=== PATIENT | female | born 1955 | race Caucasian/White ===

== ENCOUNTER → 2016-12-19 | Outpatient (CLI) | payer OTHER | LOC: LAB 10:03 | DX: E11.9 Type 2 diabetes mellitus without complications (principal); M54.16 Radiculopathy, lumbar region; E11.40 Type 2 diabetes mellitus with diabetic neuropathy, unspecified; B18.2 Chronic viral hepatitis C ==

== ENCOUNTER → 2017-03-04 | Outpatient (CLI) | payer OTHER | LOC: RAD 07:41 | DX: R74.8 Abnormal levels of other serum enzymes (principal); B18.2 Chronic viral hepatitis C ==

== ENCOUNTER → 2017-03-20 | Outpatient (CLI) | payer OTHER | LOC: LAB 16:41 | DX: E11.9 Type 2 diabetes mellitus without complications (principal); B18.2 Chronic viral hepatitis C; M54.16 Radiculopathy, lumbar region; C73 Malignant neoplasm of thyroid gland ==

== ENCOUNTER → 2017-05-05 | Outpatient (CLI) | payer OTHER ==
[~2017-05-05] VITALS: Ht 167.6 cm; Wt 79.5 kg
[~2017-05-05] MED LIST: BYDUREON2 MG SC; GLUCOPHAGE XR500 M2 PO; LEVEMIR FLEX100 U/ML SQ; LOPRESSOR 225 MG/TAB PO; NYSTATIN 100MU/M1 ML PO; SYNTHROID112 MCG PO; VYTORIN 10 MG-21 TAB PO; ZESTRIL10 M1 PO
[2017-05-05 17:12] VITALS: BP 135/41
[2017-05-05 17:50] VITALS: BP 167/66
--- NOTE | 2017-05-05 17:53 | NUR ---
PT ESCORTED OUT TO WAITING VEHICLE DRIVEN BY . PT STOPS SEVERAL TIMES TO STAND AND STRETCH R LEG STATING WHEN SHE SITS IT FEELS LIKE SHE HAS A "LISANDRO HORSE" BEHIND HER KNEE.
== END ==
LOC: AMSURD 17:15
DX: M54.16 Radiculopathy, lumbar region (principal)
CPT/HCPCS: J1170

== ENCOUNTER → 2017-05-26 | Outpatient (CLI) | payer OTHER ==
[~2017-05-26] VITALS: Ht 167.6 cm; Wt 79.5 kg
[2017-05-26 15:40] VITALS: BP 132/70
== END ==
LOC: AMSURD 14:59
DX: Z01.818 Encounter for other preprocedural examination (principal); M54.16 Radiculopathy, lumbar region; E11.9 Type 2 diabetes mellitus without complications

== ENCOUNTER → 2017-05-30 | Outpatient (CLI) | payer OTHER ==
[2017-05-26 15:40] VITALS: BP 132/70
== END ==
LOC: CARDREHAB 10:39
DX: R06.02 Shortness of breath (principal); I10 Essential (primary) hypertension; M54.16 Radiculopathy, lumbar region; C73 Malignant neoplasm of thyroid gland; E11.40 Type 2 diabetes mellitus with diabetic neuropathy, unspecified
CPT/HCPCS: A9500

== ENCOUNTER → 2017-07-14 | Outpatient (CLI) | payer OTHER ==
[2017-05-26 15:40] VITALS: BP 132/70
[2017-07-14 09:30] LABS: EOS # 0.1 (0.04-0.40); EOS % 2.1 % (1.0-5.0); HEMATOCRIT 41.1 % (37.0-47.0); HEMOGLOBIN 14.3 g/dL (12.5-16.0); LYMPH# 2.6 (1.50-4.00); MEAN CELL VOLUME 92 fl (78-100); MEAN CORPUSCULAR HEMOGLOBIN 32 pg (27-31); MEAN CORPUSCULAR HGB CONC 35 g/dL (33-37); MEAN PLATELET VOLUME 9.2 fl (7.4-10.4); MONO # 0.6 (0.20-0.80); NEU # 2.7 (1.40-6.50); PLATELET COUNT 201 K/mm3 (130-400); RED BLOOD COUNT 4.46 M/mm3 (4.10-5.30); RED CELL DISTRIBUTION WIDTH 13.1 % (11.5-14.5); WHITE BLOOD COUNT 6.1 K/mm3 (4.8-10.8)
[2017-07-14 09:49] LABS: ALBUMIN 3.8 g/dL (3.5-5.0); BUN/CREATININE RATIO 22.7 (6.0-26.0); CALCIUM 9.2 mg/dL (8.4-10.2); POTASSIUM 4.2 mmol/L (3.6-5.0); TOTAL BILIRUBIN 0.9 mg/dL (0.2-1.3); TOTAL PROTEIN 7.3 g/dL (6.3-8.2)
[2017-07-14 10:05] LABS: URINE APPEARANCE CLEAR; URINE BILIRUBIN NEGATIVE (NEGATIVE); URINE BLOOD NEGATIVE (NEGATIVE); URINE COLOR YELLOW; URINE GLUCOSE NEGATIVE (NEGATIVE); URINE KETONE NEGATIVE (NEGATIVE); URINE LEUKOCYTE ESTERASE NEGATIVE (NEGATIVE); URINE MUCUS PRESENT (NOT PRESENT); URINE NITRATE NEGATIVE (NEGATIVE); URINE PROTEIN(semi-quant) 1+ mg/dL (NEGATIVE); URINE UROBILINOGEN NORMAL (NORMAL)
== END ==
LOC: LAB 09:06
PROVIDERS: Internal Medicine
DX: Z01.818 Encounter for other preprocedural examination (principal); M54.16 Radiculopathy, lumbar region

== ENCOUNTER → 2017-07-22 | Outpatient (CLI) | payer OTHER ==
[2017-05-26 15:40] VITALS: BP 132/70
[2017-07-22 09:23] LABS: BUN/CREATININE RATIO 27.6 (6.0-26.0); CALCIUM 8.8 mg/dL (8.4-10.2); POTASSIUM 4.4 mmol/L (3.6-5.0)
== END ==
LOC: LAB 08:36
PROVIDERS: Internal Medicine
DX: E83.42 Hypomagnesemia (principal)

== ENCOUNTER → 2017-09-26 | Outpatient (CLI) | payer OTHER ==
[2017-05-26 15:40] VITALS: BP 132/70
[2017-09-26 16:17] LABS: EOS # 0.3 (0.04-0.40); EOS % 3.9 % (1.0-5.0); HEMATOCRIT 40.3 % (37.0-47.0); HEMOGLOBIN 13.1 g/dL (12.5-16.0); LYMPH# 3.5 (1.50-4.00); MEAN CELL VOLUME 95 fl (78-100); MEAN CORPUSCULAR HEMOGLOBIN 31 pg (27-31); MEAN CORPUSCULAR HGB CONC 33 g/dL (33-37); MONO # 0.6 (0.20-0.80); NEU # 2.3 (1.40-6.50); PLATELET COUNT 215 K/mm3 (130-400); RED BLOOD COUNT 4.26 M/mm3 (4.10-5.30); RED CELL DISTRIBUTION WIDTH 13.2 % (11.5-14.5); WHITE BLOOD COUNT 6.8 K/mm3 (4.8-10.8)
[2017-09-26 16:25] LABS: ALBUMIN 4.1 g/dL (3.5-5.0); BUN/CREATININE RATIO 21.2 (6.0-26.0); CALCIUM 9.1 mg/dL (8.4-10.2); POTASSIUM 4.1 mmol/L (3.6-5.0); TOTAL BILIRUBIN 0.4 mg/dL (0.2-1.3); TOTAL PROTEIN 8.3 g/dL (6.3-8.2)
[2017-09-26 21:30] LABS: ERYTHROCYTE SEDIMENTATION RATE 28 mm/hr (0-30)
== END ==
LOC: LAB 15:49
PROVIDERS: Internal Medicine
DX: E11.9 Type 2 diabetes mellitus without complications (principal); B18.2 Chronic viral hepatitis C; C73 Malignant neoplasm of thyroid gland; M54.16 Radiculopathy, lumbar region

== ENCOUNTER → 2018-06-12 | Outpatient (CLI) | payer OTHER ==
[2017-05-26 15:40] VITALS: BP 132/70
== END ==
LOC: RAD 10:26
DX: R05 Cough (principal)

== ENCOUNTER → 2018-07-27 | Outpatient (CLI) | payer OTHER ==
[2017-05-26 15:40] VITALS: BP 132/70
[2018-07-27 17:02] LABS: BASO # 0.1 (0.02-0.10); EOS # 0.3 (0.04-0.40); EOS % 4.3 % (1.0-5.0); HEMATOCRIT 36.2 % (37.0-47.0); HEMOGLOBIN 12.2 g/dL (12.5-16.0); LYMPH# 3.6 (1.50-4.00); MEAN CELL VOLUME 91 fl (78-100); MEAN CORPUSCULAR HEMOGLOBIN 31 pg (27-31); MEAN CORPUSCULAR HGB CONC 34 g/dL (33-37); MEAN PLATELET VOLUME 8.7 fl (7.4-10.4); MONO # 0.7 (0.20-0.80); NEU # 2.6 (1.40-6.50); PLATELET COUNT 247 K/mm3 (130-400); RED BLOOD COUNT 3.99 M/mm3 (4.10-5.30); RED CELL DISTRIBUTION WIDTH 13.5 % (11.5-14.5); WHITE BLOOD COUNT 7.2 K/mm3 (4.8-10.8)
[2018-07-27 17:12] LABS: ALBUMIN 4.3 g/dL (3.5-5.0); CALCIUM 8.9 mg/dL (8.4-10.2); POTASSIUM 4.4 mmol/L (3.6-5.0); TOTAL BILIRUBIN 0.4 mg/dL (0.2-1.3); TOTAL PROTEIN 7.7 g/dL (6.3-8.2)
[2018-07-27 20:09] LABS: ERYTHROCYTE SEDIMENTATION RATE 20 mm/hr (0-30); URINE APPEARANCE HAZY; URINE COLOR YELLOW; URINE PROTEIN(semi-quant) 2+ mg/dL (NEGATIVE)
[2018-07-27 20:10] LABS: URINE BILIRUBIN NEGATIVE (NEGATIVE); URINE BLOOD TRACE (NEGATIVE); URINE GLUCOSE NEGATIVE (NEGATIVE); URINE KETONE NEGATIVE (NEGATIVE); URINE LEUKOCYTE ESTERASE TRACE (NEGATIVE); URINE NITRATE NEGATIVE (NEGATIVE); URINE UROBILINOGEN NORMAL (NORMAL)
== END ==
LOC: LAB 16:24
PROVIDERS: Internal Medicine
DX: E11.9 Type 2 diabetes mellitus without complications (principal); I10 Essential (primary) hypertension; K90.9 Intestinal malabsorption, unspecified; M54.16 Radiculopathy, lumbar region

== ENCOUNTER → 2018-08-20 | Outpatient (CLI) | payer OTHER ==
[2017-05-26 15:40] VITALS: BP 132/70
== END ==
LOC: RAD 10:28
DX: R80.9 Proteinuria, unspecified (principal)

== ENCOUNTER → 2019-02-23 | Outpatient (CLI) | payer OTHER ==
[2017-05-26 15:40] VITALS: BP 132/70
[2019-02-23 17:12] LABS: BASO # 0.1 (0.02-0.10); EOS # 0.3 (0.04-0.40); EOS % 4.9 % (1.0-5.0); HEMATOCRIT 35.9 % (37.0-47.0); HEMOGLOBIN 11.9 g/dL (12.5-16.0); LYMPH# 2.6 (1.50-4.00); MEAN CELL VOLUME 90 fl (78-100); MEAN CORPUSCULAR HEMOGLOBIN 30 pg (27-31); MEAN CORPUSCULAR HGB CONC 33 g/dL (33-37); MEAN PLATELET VOLUME 8.7 fl (7.4-10.4); MONO # 0.6 (0.20-0.80); NEU # 2.3 (1.40-6.50); PLATELET COUNT 241 K/mm3 (130-400); RED BLOOD COUNT 4.01 M/mm3 (4.10-5.30); RED CELL DISTRIBUTION WIDTH 13.5 % (11.5-14.5); WHITE BLOOD COUNT 5.9 K/mm3 (4.8-10.8)
[2019-02-23 17:29] LABS: POTASSIUM 4.7 mmol/L (3.5-5.1)
[2019-02-23 17:30] LABS: ALBUMIN 3.6 g/dL (3.4-4.8)
[2019-02-23 17:32] LABS: TOTAL PROTEIN 7.1 g/dL (6.2-8.1)
[2019-02-23 17:34] LABS: TOTAL BILIRUBIN 0.4 mg/dL (0.2-1.2)
[2019-02-23 18:15] LABS: ERYTHROCYTE SEDIMENTATION RATE 28 mm/hr (0-30)
== END ==
LOC: LAB 16:48
PROVIDERS: Internal Medicine
DX: I10 Essential (primary) hypertension (principal); E11.9 Type 2 diabetes mellitus without complications; K90.9 Intestinal malabsorption, unspecified

== ENCOUNTER → 2019-10-04 | Outpatient (CLI) | payer OTHER ==
[2017-05-26 15:40] VITALS: BP 132/70
[2019-10-04 18:04] LABS: BASO # 0.1 (0.02-0.10); EOS # 0.3 (0.04-0.40); EOS % 3.1 % (1.0-5.0); HEMATOCRIT 36.7 % (37.0-47.0); HEMOGLOBIN 12.2 g/dL (12.5-16.0); LYMPH# 3.6 (1.50-4.00); MEAN CELL VOLUME 88 fl (78-100); MEAN CORPUSCULAR HEMOGLOBIN 29 pg (27-31); MEAN CORPUSCULAR HGB CONC 33 g/dL (33-37); MEAN PLATELET VOLUME 9.2 fl (7.4-10.4); MONO # 0.9 (0.20-0.80); NEU # 4.6 (1.40-6.50); PLATELET COUNT 266 K/mm3 (130-400); RED BLOOD COUNT 4.15 M/mm3 (4.10-5.30); RED CELL DISTRIBUTION WIDTH 13.5 % (11.5-14.5); WHITE BLOOD COUNT 9.4 K/mm3 (4.8-10.8)
[2019-10-04 18:07] LABS: ALBUMIN 3.8 g/dL (3.4-4.8); POTASSIUM 4.7 mmol/L (3.5-5.1)
[2019-10-04 18:08] LABS: CALCIUM 8.9 mg/dL (8.3-10.5)
[2019-10-04 18:09] LABS: TOTAL PROTEIN 7.5 g/dL (6.2-8.1)
[2019-10-04 18:11] LABS: TOTAL BILIRUBIN 0.3 mg/dL (0.2-1.2)
[2019-10-04 18:25] LABS: URINE APPEARANCE CLEAR; URINE BILIRUBIN NEGATIVE (NEGATIVE); URINE BLOOD TRACE (NEGATIVE); URINE COLOR YELLOW; URINE GLUCOSE NEGATIVE (NEGATIVE); URINE KETONE NEGATIVE (NEGATIVE); URINE LEUKOCYTE ESTERASE 1+ (NEGATIVE); URINE NITRATE NEGATIVE (NEGATIVE); URINE PROTEIN(semi-quant) 3+ mg/dL (NEGATIVE); URINE UROBILINOGEN NORMAL (NORMAL)
[2019-10-04 18:45] LABS: ERYTHROCYTE SEDIMENTATION RATE 39 mm/hr (0-30)
== END ==
LOC: LAB 17:30
PROVIDERS: Internal Medicine
DX: E11.9 Type 2 diabetes mellitus without complications (principal); I10 Essential (primary) hypertension; M54.16 Radiculopathy, lumbar region; K90.9 Intestinal malabsorption, unspecified

== ENCOUNTER → 2019-12-13 | Outpatient (CLI) | payer OTHER ==
[2017-05-26 15:40] VITALS: BP 132/70
== END ==
LOC: LAB 09:30
DX: E11.9 Type 2 diabetes mellitus without complications (principal); I10 Essential (primary) hypertension; R19.7 Diarrhea, unspecified; M79.10 Myalgia, unspecified site; R11.0 Nausea

== ENCOUNTER → 2020-01-31 | Outpatient (CLI) | payer OTHER ==
[2017-05-26 15:40] VITALS: BP 132/70
[2020-01-31 15:56] LABS: EOS # 0.2 (0.04-0.40); HEMATOCRIT 38.2 % (37.0-47.0); HEMOGLOBIN 12.6 g/dL (12.5-16.0); LYMPH# 3.2 (1.50-4.00); MEAN CELL VOLUME 89 fl (78-100); MEAN CORPUSCULAR HEMOGLOBIN 29 pg (27-31); MEAN CORPUSCULAR HGB CONC 33 g/dL (33-37); MONO # 0.7 (0.20-0.80); NEU # 3.9 (1.40-6.50); PLATELET COUNT 265 K/mm3 (130-400); RED BLOOD COUNT 4.29 M/mm3 (4.10-5.30); RED CELL DISTRIBUTION WIDTH 13.5 % (11.5-14.5); WHITE BLOOD COUNT 8.1 K/mm3 (4.8-10.8)
[2020-01-31 16:14] LABS: POTASSIUM 5.1 mmol/L (3.5-5.1)
[2020-01-31 16:15] LABS: CALCIUM 9.3 mg/dL (8.3-10.5)
[2020-01-31 16:16] LABS: TOTAL PROTEIN 7.7 g/dL (6.2-8.1)
[2020-01-31 16:18] LABS: TOTAL BILIRUBIN 0.4 mg/dL (0.2-1.2)
== END ==
LOC: LAB 15:24
PROVIDERS: Internal Medicine
DX: Z01.818 Encounter for other preprocedural examination (principal); E11.9 Type 2 diabetes mellitus without complications; I10 Essential (primary) hypertension; M54.16 Radiculopathy, lumbar region

== ENCOUNTER → 2020-11-21 | Outpatient (CLI) | payer OTHER ==
[2017-05-26 15:40] VITALS: BP 132/70
[2020-11-21 15:50] LABS: ALBUMIN 3.9 g/dL (3.4-4.8); POTASSIUM 4.2 mmol/L (3.5-5.1)
[2020-11-21 15:51] LABS: CALCIUM 8.8 mg/dL (8.3-10.5)
[2020-11-21 15:53] LABS: TOTAL PROTEIN 7.5 g/dL (6.2-8.1)
[2020-11-21 15:54] LABS: TOTAL BILIRUBIN 0.4 mg/dL (0.2-1.2)
[2020-11-21 16:32] LABS: EOS # 0.3 (0.04-0.40); EOS % 4.8 % (1.0-5.0); HEMATOCRIT 36.8 % (37.0-47.0); HEMOGLOBIN 11.8 g/dL (12.5-16.0); LYMPH# 2.9 (1.50-4.00); MEAN CELL VOLUME 90 fl (78-100); MEAN CORPUSCULAR HEMOGLOBIN 29 pg (27-31); MEAN CORPUSCULAR HGB CONC 32 g/dL (33-37); MEAN PLATELET VOLUME 9.4 fl (7.4-10.4); MONO # 0.7 (0.20-0.80); NEU # 2.8 (1.40-6.50); PLATELET COUNT 292 K/mm3 (130-400); RED BLOOD COUNT 4.08 M/mm3 (4.10-5.30); RED CELL DISTRIBUTION WIDTH 13.6 % (11.5-14.5); WHITE BLOOD COUNT 6.8 K/mm3 (4.8-10.8)
== END ==
LOC: LAB 15:30
PROVIDERS: Internal Medicine
DX: E11.9 Type 2 diabetes mellitus without complications (principal); K90.9 Intestinal malabsorption, unspecified

== ENCOUNTER → 2021-02-21 | Outpatient (CLI) | payer BC | LOC: LAB 15:42 | DX: E11.21 Type 2 diabetes mellitus with diabetic nephropathy (principal) ==

== ENCOUNTER → 2021-06-26 | Outpatient (CLI) | payer BC | LOC: RAD 14:42 | DX: S29.019A Strain of muscle and tendon of unspecified wall of thorax, initial encounter (principal) ==

== ENCOUNTER → 2021-08-30 | Outpatient (CLI) | payer BC | LOC: RAD 13:57 | DX: M51.14 Intervertebral disc disorders with radiculopathy, thoracic region (principal); S29.019A Strain of muscle and tendon of unspecified wall of thorax, initial encounter | CPT/HCPCS: A9585 ==

== ENCOUNTER → 2021-10-30 | Outpatient (CLI) | payer BC ==
[2021-10-30 11:34] LABS: BASO # 0.04 K/mm3 (0.02-0.10); EOS # 0.12 K/mm3 (0.04-0.40); EOS % 1.6 % (1.0-5.0); HEMATOCRIT 37.4 % (37.0-47.0); HEMOGLOBIN 12.8 g/dL (12.5-16.0); LYMPH# 3.12 K/mm3 (1.50-4.00); MEAN CELL VOLUME 87 fl (78-100); MEAN CORPUSCULAR HEMOGLOBIN 30 pg (27-31); MEAN CORPUSCULAR HGB CONC 34 g/dL (33-37); MEAN PLATELET VOLUME 9.2 fl (7.4-10.4); MONO # 0.65 K/mm3 (0.20-0.80); NEU # 3.54 K/mm3 (1.40-6.50); PLATELET COUNT 237 K/mm3 (130-400); RED BLOOD COUNT 4.32 M/mm3 (4.10-5.30); RED CELL DISTRIBUTION WIDTH 13.2 % (11.5-14.5); WHITE BLOOD COUNT 7.6 K/mm3 (4.8-10.8)
[2021-10-30 11:38] LABS: POTASSIUM 5.1 mmol/L (3.5-5.1)
[2021-10-30 11:39] LABS: ALBUMIN 3.6 g/dL (3.4-4.8)
[2021-10-30 11:40] LABS: CALCIUM 9.1 mg/dL (8.3-10.5)
[2021-10-30 11:41] LABS: TOTAL PROTEIN 6.7 g/dL (6.2-8.1)
[2021-10-30 11:43] LABS: TOTAL BILIRUBIN 0.4 mg/dL (0.2-1.2)
[2021-10-30 11:48] LABS: MAGNESIUM 1.48 mg/dL (1.60-2.60)
== END ==
LOC: LAB 11:00
PROVIDERS: Internal Medicine
DX: S29.019A Strain of muscle and tendon of unspecified wall of thorax, initial encounter (principal); M54.16 Radiculopathy, lumbar region; I10 Essential (primary) hypertension; K90.9 Intestinal malabsorption, unspecified; E11.9 Type 2 diabetes mellitus without complications; E78.2 Mixed hyperlipidemia

== ENCOUNTER → 2022-01-04 | Outpatient (CLI) | payer BC ==
[2022-01-04 10:42] LABS: BASO # 0.06 K/mm3 (0.02-0.10); EOS # 0.28 K/mm3 (0.04-0.40); EOS % 3.5 % (1.0-5.0); HEMATOCRIT 38.5 % (37.0-47.0); HEMOGLOBIN 12.8 g/dL (12.5-16.0); LYMPH# 2.84 K/mm3 (1.50-4.00); MEAN CELL VOLUME 90 fl (78-100); MEAN CORPUSCULAR HEMOGLOBIN 30 pg (27-31); MEAN CORPUSCULAR HGB CONC 33 g/dL (33-37); MEAN PLATELET VOLUME 9.2 fl (7.4-10.4); MONO # 0.66 K/mm3 (0.20-0.80); PLATELET COUNT 285 K/mm3 (130-400); RED BLOOD COUNT 4.29 M/mm3 (4.10-5.30); RED CELL DISTRIBUTION WIDTH 13.3 % (11.5-14.5); WHITE BLOOD COUNT 7.9 K/mm3 (4.8-10.8)
[2022-01-04 10:49] LABS: POTASSIUM 5.5 mmol/L (3.5-5.1)
[2022-01-04 10:50] LABS: ALBUMIN 3.9 g/dL (3.4-4.8)
[2022-01-04 10:51] LABS: CALCIUM 9.7 mg/dL (8.3-10.5)
[2022-01-04 10:52] LABS: TOTAL PROTEIN 7.2 g/dL (6.2-8.1)
[2022-01-04 10:54] LABS: TOTAL BILIRUBIN 0.5 mg/dL (0.2-1.2)
[2022-01-04 10:59] LABS: MAGNESIUM 1.54 mg/dL (1.60-2.60)
== END ==
LOC: LAB 10:21
PROVIDERS: Internal Medicine
DX: S29.019A Strain of muscle and tendon of unspecified wall of thorax, initial encounter (principal); M51.14 Intervertebral disc disorders with radiculopathy, thoracic region; M48.062 Spinal stenosis, lumbar region with neurogenic claudication; E11.9 Type 2 diabetes mellitus without complications; E78.2 Mixed hyperlipidemia; I10 Essential (primary) hypertension; X58.XXXA Exposure to other specified factors, initial encounter

== ENCOUNTER → 2022-04-09 | Outpatient (CLI) | payer BC ==
[2022-04-09 16:38] LABS: BASO # 0.05 K/mm3 (0.02-0.10); EOS % 3.1 % (1.0-5.0); HEMOGLOBIN 13.1 g/dL (12.5-16.0); LYMPH# 2.56 K/mm3 (1.50-4.00); MEAN CELL VOLUME 91 fl (78-100); MEAN CORPUSCULAR HEMOGLOBIN 30 pg (27-31); MEAN CORPUSCULAR HGB CONC 33 g/dL (33-37); MEAN PLATELET VOLUME 9.1 fl (7.4-10.4); MONO # 0.64 K/mm3 (0.20-0.80); NEU # 2.97 K/mm3 (1.40-6.50); PLATELET COUNT 271 K/mm3 (130-400); RED CELL DISTRIBUTION WIDTH 13.4 % (11.5-14.5); WHITE BLOOD COUNT 6.5 K/mm3 (4.8-10.8)
[2022-04-09 16:55] LABS: ALBUMIN 3.9 g/dL (3.4-4.8)
[2022-04-09 16:56] LABS: POTASSIUM 4.7 mmol/L (3.5-5.1)
[2022-04-09 16:57] LABS: CALCIUM 9.3 mg/dL (8.3-10.5)
[2022-04-09 16:58] LABS: TOTAL PROTEIN 6.8 g/dL (6.2-8.1)
[2022-04-09 17:00] LABS: TOTAL BILIRUBIN 0.5 mg/dL (0.2-1.2)
[2022-04-09 17:05] LABS: MAGNESIUM 1.44 mg/dL (1.60-2.60)
== END ==
LOC: LAB 16:27
PROVIDERS: Internal Medicine
DX: M51.24 Other intervertebral disc displacement, thoracic region (principal); M48.062 Spinal stenosis, lumbar region with neurogenic claudication; M54.16 Radiculopathy, lumbar region; S29.019A Strain of muscle and tendon of unspecified wall of thorax, initial encounter; I10 Essential (primary) hypertension; E78.2 Mixed hyperlipidemia; E11.9 Type 2 diabetes mellitus without complications

== ENCOUNTER → 2023-05-30 | Outpatient (CLI) | payer BC ==
[2023-05-30 15:05] LABS: POTASSIUM 5.4 mmol/L (3.5-5.1)
[2023-05-30 15:06] LABS: CALCIUM 9.3 mg/dL (8.3-10.5)
== END ==
LOC: LAB 14:10
PROVIDERS: Internal Medicine
DX: E11.9 Type 2 diabetes mellitus without complications (principal); I10 Essential (primary) hypertension; E78.2 Mixed hyperlipidemia

== ENCOUNTER → 2023-06-09 | Outpatient (CLI) | payer BC | LOC: RAD 14:00 | DX: N17.9 Acute kidney failure, unspecified (principal) ==

== ENCOUNTER → 2023-11-03 | Outpatient (CLI) | payer BC ==
[2023-11-03 13:38] LABS: BASO # 0.04 K/mm3 (0.02-0.10); EOS # 0.19 K/mm3 (0.04-0.40); EOS % 2.9 % (1.0-5.0); HEMATOCRIT 39.6 % (37.0-47.0); HEMOGLOBIN 12.7 g/dL (12.5-16.0); LYMPH# 2.44 K/mm3 (1.50-4.00); MEAN CELL VOLUME 93 fl (78-100); MEAN CORPUSCULAR HEMOGLOBIN 30 pg (27-31); MEAN CORPUSCULAR HGB CONC 32 g/dL (33-37); MEAN PLATELET VOLUME 8.9 fl (7.4-10.4); MONO # 0.69 K/mm3 (0.20-0.80); NEU # 3.12 K/mm3 (1.40-6.50); PLATELET COUNT 237 K/mm3 (130-400); RED BLOOD COUNT 4.28 M/mm3 (4.10-5.30); RED CELL DISTRIBUTION WIDTH 13.8 % (11.5-14.5); WHITE BLOOD COUNT 6.5 K/mm3 (4.8-10.8)
[2023-11-03 13:50] LABS: CALCIUM 9.8 mg/dL (8.3-10.5)
[2023-11-03 13:51] LABS: TOTAL PROTEIN 7.4 g/dL (6.2-8.1)
[2023-11-03 13:53] LABS: TOTAL BILIRUBIN 0.6 mg/dL (0.2-1.2)
[2023-11-03 13:56] LABS: URINE APPEARANCE SLIGHTLY CLOUDY (CLEAR); URINE COLOR YELLOW (YELLOW)
[2023-11-03 13:57] LABS: URINE BILIRUBIN NEGATIVE (NEGATIVE); URINE BLOOD NEGATIVE (NEGATIVE); URINE GLUCOSE 2+ (NEGATIVE); URINE KETONE NEGATIVE (NEGATIVE); URINE NITRATE NEGATIVE (NEGATIVE); URINE PROTEIN(semi-quant) 3+ (NEGATIVE)
[2023-11-03 13:58] LABS: URINE LEUKOCYTE ESTERASE NEGATIVE (NEGATIVE)
== END ==
LOC: LAB 13:20
PROVIDERS: Nurse Practitioner
DX: R39.9 Unspecified symptoms and signs involving the genitourinary system (principal)

== ENCOUNTER → 2023-11-07 | Outpatient (CLI) | payer BC | LOC: RAD 16:21 | DX: R10.84 Generalized abdominal pain (principal) ==

== ENCOUNTER → 2024-03-01 | Outpatient (CLI) | payer OTHER ==
[2024-03-01 16:48] LABS: BASO # 0.04 K/mm3 (0.02-0.10); EOS % 2.9 % (1.0-5.0); HEMATOCRIT 40.9 % (37.0-47.0); HEMOGLOBIN 13.2 g/dL (12.5-16.0); LYMPH# 2.05 K/mm3 (1.50-4.00); MEAN CELL VOLUME 93 fl (78-100); MEAN CORPUSCULAR HEMOGLOBIN 30 pg (27-31); MEAN CORPUSCULAR HGB CONC 32 g/dL (33-37); MEAN PLATELET VOLUME 8.8 fl (7.4-10.4); MONO # 0.58 K/mm3 (0.20-0.80); NEU # 3.89 K/mm3 (1.40-6.50); PLATELET COUNT 232 K/mm3 (130-400); RED BLOOD COUNT 4.41 M/mm3 (4.10-5.30); WHITE BLOOD COUNT 6.8 K/mm3 (4.8-10.8)
[2024-03-01 16:53] LABS: CALCIUM 10.2 mg/dL (8.3-10.5)
[2024-03-01 16:54] LABS: TOTAL PROTEIN 7.5 g/dL (6.2-8.1)
[2024-03-01 16:56] LABS: TOTAL BILIRUBIN 0.5 mg/dL (0.2-1.2)
[2024-03-01 17:01] LABS: MAGNESIUM 1.97 mg/dL (1.60-2.60)
[2024-03-01 17:20] LABS: URINE APPEARANCE CLEAR (CLEAR); URINE BILIRUBIN NEGATIVE (NEGATIVE); URINE COLOR YELLOW (YELLOW); URINE GLUCOSE 2+ (NEGATIVE); URINE KETONE NEGATIVE (NEGATIVE)
[2024-03-01 17:21] LABS: URINE BLOOD NEGATIVE (NEGATIVE); URINE LEUKOCYTE ESTERASE NEGATIVE (NEGATIVE); URINE NITRATE NEGATIVE (NEGATIVE); URINE PROTEIN(semi-quant) 3+ (NEGATIVE)
== END ==
LOC: LAB 16:20
PROVIDERS: Internal Medicine
DX: E11.9 Type 2 diabetes mellitus without complications (principal); E78.2 Mixed hyperlipidemia; I10 Essential (primary) hypertension; N39.0 Urinary tract infection, site not specified

== ENCOUNTER → 2024-07-27 | Outpatient (CLI) | payer OTHER ==
[~2024-07-27] MED LIST changes: +Gadoterate 20 ML VIAL IV ONE
[2024-07-27 11:35] LABS: BASO # 0.02 K/mm3 (0.02-0.10); EOS # 0.17 K/mm3 (0.04-0.40); EOS % 4.1 % (1.0-5.0); HEMATOCRIT 38.8 % (37.0-47.0); HEMOGLOBIN 12.3 g/dL (12.5-16.0); LYMPH# 1.39 K/mm3 (1.50-4.00); MEAN CELL VOLUME 94 fl (78-100); MEAN CORPUSCULAR HEMOGLOBIN 30 pg (27-31); MEAN CORPUSCULAR HGB CONC 32 g/dL (33-37); MEAN PLATELET VOLUME 8.6 fl (7.4-10.4); MONO # 0.38 K/mm3 (0.20-0.80); NEU # 2.15 K/mm3 (1.40-6.50); PLATELET COUNT 192 K/mm3 (130-400); RED BLOOD COUNT 4.13 M/mm3 (4.10-5.30); RED CELL DISTRIBUTION WIDTH 14.6 % (11.5-14.5); WHITE BLOOD COUNT 4.1 K/mm3 (4.8-10.8)
[2024-07-27 11:39] LABS: ALBUMIN 3.8 g/dL (3.4-4.8)
[2024-07-27 11:44] LABS: TOTAL BILIRUBIN 0.5 mg/dL (0.2-1.2)
[2024-07-27 11:48] LABS: MAGNESIUM 2.02 mg/dL (1.60-2.60)
== END ==
LOC: RAD 11:13
PROVIDERS: Internal Medicine
DX: H49.11 Fourth [trochlear] nerve palsy, right eye (principal)
CPT/HCPCS: A9575

== ENCOUNTER → 2024-07-28 | Outpatient (CLI) | payer OTHER ==
[~2024-07-28] MED LIST changes: -Gadoterate 20 ML VIAL IV ONE
== END ==
LOC: LAB 12:36
DX: H49.11 Fourth [trochlear] nerve palsy, right eye (principal)

== ENCOUNTER → 2024-08-06 | Outpatient (CLI) | payer OTHER | LOC: LAB 18:02 | DX: H49.9 Unspecified paralytic strabismus (principal) ==

== ENCOUNTER → 2024-09-07 | Outpatient (CLI) | payer OTHER | LOC: MAMMO 07:00 | DX: D24.1 Benign neoplasm of right breast (principal) ==